=== PATIENT | female | born 1975 | race Caucasian/White ===

== ENCOUNTER 2019-01-29 21:13 | Emergency (ER) | payer OTHER ==
[2019-01-29] MEDS ORDERED: Famotidine In NaCl 20 mg/50 ml Premix Bag ONE (21:34)
[2019-01-29] MEDS ORDERED: diphenhydrAMINE 50 MG/ML VIAL ONE (21:35)
[2019-01-29] MEDS ORDERED: methylPREDNISolone Sod Succ/PF 125 MG/2 ML VIAL ONE (21:35)
== END 2019-01-30 00:28 | disposition home or self-care (01) ==
LOC: BURERS 21:13
DX: J02.9 Acute pharyngitis, unspecified (principal); Z79.899 Other long term (current) drug therapy
CPT/HCPCS: 96365; 96375; J1200; J2930